=== PATIENT | male | born 1970 | race Two or more races ===

== ENCOUNTER 2020-09-02 09:46 | Emergency (ER) | payer MEDICARE, OTHER ==
[~2020-09-02] VITALS: Ht 160 cm; Wt 63.5 kg
[2020-09-02 10:20] VITALS: BP 117/87
[2020-09-02] MEDS ORDERED: LIDOCAINE 1% HCL (LOCAL ANESTH.) INJ 20ML MDV IJ ONE (10:45)
[2020-09-02] MEDS ORDERED: IBUPROFEN 800 MG TAB PO ONE (11:30)
== END 2020-09-02 11:40 | disposition home or self-care (01) ==
LOC: ER 09:46
DX: S01.511A Laceration without foreign body of lip, initial encounter (principal); W01.0XXA Fall on same level from slipping, tripping and stumbling without subsequent striking against object, initial encounter; Y93.89 Activity, other specified; Y92.89 Other specified places as the place of occurrence of the external cause; Y99.8 Other external cause status
CPT/HCPCS: 12011; 99282; J2001